=== PATIENT | female | born 1980 | race Caucasian/White ===

== ENCOUNTER → 2020-09-30 | Outpatient (CLI) | payer OTHER ==
[~2020-09-30] MED LIST: AMOXICILLIN 50500 MG PO; CLINDAMYCIN HC300 MG PO; DIOVAN160 M1 PO; MOTRIN 600600 MG/TAB PO; NIGHT-TIME COL300 ML; PERCOCET 325 MG1 TA2 PO; PRENATAL1 TA1 PO; ZITHROMAX 250M250 MG PO; ZOFRAN 4MG T4 MG/TAB PO
== END ==
LOC: COL.RAD 08:38
DX: R29.810 Facial weakness (principal)

== ENCOUNTER → 2024-05-20 | Outpatient (CLI) | payer OTHER | LOC: MC.RAD 09:52 | DX: Z12.31 Encounter for screening mammogram for malignant neoplasm of breast (principal) ==